=== PATIENT | female | born 2005 | race Two or more races ===

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

== ENCOUNTER 2023-01-17 08:58 | Outpatient (OUT) | payer OTHER, SELFPAY ==
[2023-01-17 09:53] LABS: HCG Qualitative Urine* NEGATIVE (NEGATIVE)
== END 2023-01-17 08:59 | disposition home or self-care (01) ==
LOC: LAB 09:02
PROVIDERS: PCP Family Medicine
DX: L70.0 Acne vulgaris (principal); Z79.899 Other long term (current) drug therapy
CPT/HCPCS: 84703

== ENCOUNTER 2023-02-19 07:29 | Outpatient (OUT) | payer OTHER, SELFPAY ==
[2023-02-19 08:03] LABS: Basophils Percent Auto 0.2 % (0.2-2.0); Eosinophils Absolute Auto 0.1 10^3/uL (0.0-0.7); Eosinophils Percent Auto 1.5 % (0.9-7.0); Hemoglobin 12.5 g/dL (12.0-16.0); Immature Granulocytes Abs Auto 0.01 10^3/uL (0.00-0.03); Immature Granulocytes Pct Auto 0.2 % (0.0-0.5); Lymphocytes Absolute Auto 1.3 10^3/uL (1.2-3.8); Lymphocytes Percent Auto 22.9 % (20.5-60.0); Mean Corpuscular HGB Conc 32.9 g/dL (29.9-35.2); Mean Corpuscular Hemoglobin 30.5 pg (26.7-34.0); Mean Corpuscular Volume 92.7 fL (81.0-99.0); Monocytes Absolute Auto 0.4 10^3/uL (0.3-0.8); Monocytes Percent Auto 6.3 % (1.7-12.0); Neutrophils Percent Auto 68.9 % (43.0-75.0); Platelet Count 225 10^3/uL (150-450); Red Cell Distribution Width 11.7 % (11.0-15.0); White Blood Count 5.9 10^3/uL (4.0-11.0)
[2023-02-19 08:20] LABS: Alanine Aminotransferase 21 U/L (14-59); Aspartate Amino Transferase 12 U/L (15-37); Chol HDL Ratio 3.4; Cholesterol 176 mg/dL (104-227); Glucose 94 mg/dL (74-106); HCG Quantitative <1 mIU/mL; HDL Cholesterol 52 mg/dL (29-69); LDL Cholesterol Calculated 92.8 mg/dL; Triglycerides 156 mg/dL (53-208); VLDL CHOLESTEROL 31.2 mg/dL
== END 2023-02-19 07:30 | disposition home or self-care (01) ==
LOC: LAB 07:32
PROVIDERS: PCP Family Medicine
DX: L70.0 Acne vulgaris (principal); Z79.899 Other long term (current) drug therapy
CPT/HCPCS: 36415; 80061; 82947; 84450; 84460; 84702; 85025